=== PATIENT | male | born 1960 | race Caucasian/White ===

== ENCOUNTER 2017-02-11 09:03 | Emergency (ER) | payer BC ==
--- NOTE | 2017-02-11 09:23 | UC ---
Throat Pain/Nasal Elder HPI - HPI Summary HPI Summary: complaint of productive cough that started approx 4 days ago dark green sputum sometimes blood tinged nasal congestion- sinus pressure intermittent headache pressure in his right ear sore throat fever and chills- fever of 102 last night fatigue taking alkaseltzer and drinking tea with honey recent chest x-ray end of 11/09 - History of Current Complaint Chief Complaint: UCRespiratory Stated Complaint: COUGH,FEVER,SORE THROAT Time Seen by Provider: 02/11/17 09:06 Hx Obtained From: Patient Cough: Productive Associated Signs & Symptoms: Positive: Sinus Discomfort, Nasal Discharge - Allergies/Home Medications Allergies/Adverse Reactions: Allergies Allergy/AdvReac Type Severity Reaction Status Date / Time Bee Venom Allergy Severe Anaphylatic Verified 12/25/16 08:19 Shock Erythromycin Allergy Severe Anaphylatic Verified 02/11/17 09:08 Shock Prednisone Allergy Severe Anaphylatic Verified 02/11/17 09:08 Shock Citalopram [From Celexa] Allergy Intermediate Rash Verified 02/11/17 09:08 Oxycodone [From Percocet] Allergy Intermediate Hives Verified 02/11/17 09:08 Tetracycline Allergy Intermediate Rash Verified 02/11/17 09:08 Venlafaxine [From Effexor] Allergy Intermediate Rash Verified 02/11/17 09:08 LIQUID BANDAGE Allergy Blisters Uncoded 02/11/17 09:08 Home Medications: Home Medications traMADol TAB* [Ultram*] 50 mg PO Q6HR PRN 02/11/17 [History Confirmed 02/11/17] PMH/Surg Hx/FS Hx/Imm Hx Previously Healthy: No - RA, Endocrine History Of: Denies: Diabetes, Thyroid Disease Cardiovascular History Of: Reports: Hypertension Denies: Cardiac Disorders, Pacemaker/ICD Respiratory History Of: Reports: Pneumonia Denies: COPD, Asthma GI/ History Of: Reports: Ulcer, Kidney Stones Denies: Renal Disease Neurological History Of: Reports: CVA, Migraine - Surgical History Surgical History: Yes Surgery Procedure, Year, and Place: APPENDECTOMY 1972. Tonsillectomy 1962. RIGHT WRIST/ELBOW-CARPAL SHAMIR 1986. LEFT KNEE RECONSTRUCTION x2 '81 + 88. GALL BLADDER. TESTICULAR SX TO CORRECT REPEATED TORSIONS 1999. 09/27/16 LAMINECTOMY - L3-L4. 10/21/16 - LUMBAR - FOR SEPSIS - Family History Known Family History: Positive: None Negative: Cardiac Disease, Hypertension, Diabetes - Social History Occupation: Disabled Lives: With Family Alcohol Use: None Substance Use Type: None Smoking Status (MU): Never Smoked Tobacco Have You Smoked in the Last Year: No - Immunization History Most Recent Influenza Vaccination: not this season Review of Systems Constitutional: Fever, Fatigue Skin: Negative Eyes: Negative ENT: Sore Throat, Nasal Discharge Respiratory: Cough Cardiovascular: Negative Gastrointestinal: Negative Genitourinary: Negative Motor: Negative Neurovascular: Negative Musculoskeletal: Negative Neurological: Negative Psychological: Negative All Other Systems Reviewed And Are Negative: Yes Physical Exam Triage Information Reviewed: Yes Appearance: No Pain Distress, Well-Nourished, Ill-Appearing, Obese Vital Signs: Initial Vital Signs Temp 98.7 F 02/11/17 09:09 Pulse 66 02/11/17 09:09 Resp 18 02/11/17 09:09 BP 129/64 02/11/17 09:09 Pulse Ox 100 02/11/17 09:09 Vital Signs Reviewed: Yes Eyes: Positive: Conjunctiva Clear ENT: Positive: Pharyngeal erythema, Nasal congestion, TMs normal, Other: - maxillary sinus tenderness. Negative: TM bulging Dental: Positive: Cervical Lymphadenopathy Neck: Positive: Supple Respiratory: Positive: No respiratory distress, No accessory muscle use, Decreased breath sounds - in the bases, Wheezing - in both upper lobes Cardiovascular: Positive: RRR, No Murmur, Pulses Normal Abdomen Description: Positive: Nontender, Soft, Distended Bowel Sounds: Positive: Present Musculoskeletal: Positive: No Edema Neurological: Positive: Alert Psychological Exam: Normal Skin Exam: Normal Re-Evaluation - Re-Evaluation First Eval Re-Evaluation Time: 10:10 Change: Improved - less wheezing more air movement throughout Throat Pain/Nasal Course/Dx - Course Course Of Treatment: exam completed. refused chest x-ray at this time. will treat for bronchitis with antibiotic d/t comorbiidty of RA and taking methotrexate-hx of pneumonia 2016- followup with PCP in 2-3 days - Differential Dx/Diagnosis Differential Diagnosis/HQI/PQRI: Sinusitis, URI, Other - bronchitis, pneumonia Provider Diagnoses: bronchitis Discharge - Discharge Plan Condition: Stable Disposition: HOME Prescriptions: Albuterol HFA INHALER* [Ventolin HFA Inhaler*] 2 puff INH Q4H PRN #1 mdi PRN Reason: Wheezing Amoxicillin/Clavulanate TAB* [Augmentin TAB 875*] 875 mg PO BID #20 tab Spacer/Aerosol-Holding Chamber [Aerochamber Mv] 1 mis XX Q4HR #1 mis Patient Education Materials: Acute Bronchitis (ED) Referrals: Pedro Mckeon MD [Primary Care Provider] - Additional Instructions: Please take antibiotic as directed Use your albuterol inhaler every 4-6 hours when needed for wheezing, shortness of breath or uncontrolled coughing. Increase fluids and rest Take acetaminophen or ibuprofen for fever or pain Please review your discharge instructions. If your symptoms do not improve please call your primary care provider or return to urgent care.
[2017-02-11] MEDS ORDERED: Albuterol/Ipratropium NEB.SOL* Albuterol 2.5 MG/Ipratropium 0.5 MG 3 ML INH ONE (09:29)
[2017-02-11] MEDS ORDERED: Albuterol 2.5 MG/3 ML NEB.SOL* (0.083%) INH ONE (09:32)
[2017-02-11 09:35] VITALS: BP 129/64
== END 2017-02-11 10:15 | disposition home or self-care (01) ==
LOC: UCCORT 09:03
DX: J40 Bronchitis, not specified as acute or chronic (principal); E66.9 Obesity, unspecified; Z90.49 Acquired absence of other specified parts of digestive tract; Z88.1 Allergy status to other antibiotic agents; Z88.5 Allergy status to narcotic agent
CPT/HCPCS: 99212; G0463